=== PATIENT | female | born 1970 | race Caucasian/White ===

== ENCOUNTER 2018-04-10 08:28 | Emergency (ER) | payer OTHER ==
[2018-04-10 09:42] VITALS: RESP 18; BMI 27.4
[2018-04-10] MEDS ORDERED: Sodium Chloride 0.9% 1,000 ML IV STA (09:59)
--- NOTE | 2018-04-10 10:21 | ED PDOC ---
Arrival/HPI - General Chief Complaint: Back Pain Time Seen by Provider: 04/10/18 09:03 Historian: Patient - History of Present Illness Narrative History of Present Illness (Text): 04/10/18 10:18 48-year-old female presents today with left flank pain. Patient states she woke up at 4 AM with a sharp left-sided flank pain that radiates to the left lower abdomen. She denies dysuria or urinary frequency. Denies hematuria. Patient states pain was associated with 2 episodes of vomiting. She denies chest pain or shortness of breath. Denies fevers or chills. Patient denies dizziness or weakness. Patient denies any recent trauma or injury. Patient with a history of kidney stones in the past but never with pain as severe as this. No medications have been taken for pain at home. No other complaints Time/Duration: Other (4am this morning) Symptom Onset: Sudden Symptom Course: Unchanged Quality: Stabbing Past Medical History - Provider Review Nursing Documentation Reviewed: Yes - Travel History Have you recently traveled outside [place] w/in the past 3 mons?: No - Infectious Disease Hx of Infectious Diseases: None - Reproductive Menopause: No - Cardiac Hx Cardiac Disorders: No - Pulmonary Hx Respiratory Disorders: No - Neurological Hx Neurological Disorder: No - Endocrine/Metabolic Hx Endocrine Disorders: No Hx Hypothyroidism: Yes - Hematological/Oncological Hx Blood Disorders: No - Integumentary Hx Dermatological Disorder: No - Psychiatric Hx Substance Use: No - Anesthesia Hx Anesthesia: No Family/Social History - Physician Review Nursing Documentation Reviewed: Yes Family/Social History: Unknown Family HX Smoking Status: Unknown If Ever Smoked Hx Alcohol Use: No Hx Substance Use: No Allergies/Home Meds Allergies/Adverse Reactions: Allergies No Known Allergies Allergy (Verified 04/10/18 09:58) Review of Systems - Review of Systems Constitutional: absent: Fatigue, Fevers Respiratory: absent: SOB, Cough Cardiovascular: absent: Chest Pain, Palpitations Gastrointestinal: Abdominal Pain, Nausea, Vomiting. absent: Constipation, Diarrhea Genitourinary Female: absent: Dysuria, Frequency, Hematuria, Vaginal Bleeding, Vaginal Discharge Musculoskeletal: Back Pain. absent: Arthralgias, Neck Pain Skin: absent: Rash Neurological: absent: Headache, Dizziness Psychiatric: absent: Anxiety, Depression, Suicidal Ideation Physical Exam Vital Signs Reviewed: Yes Vital Signs Temp Pulse Resp BP Pulse Ox 05/14/18 11:25 79 18 135/71 100 04/10/18 09:18 98.9 F 83 18 137/78 100 Temperature: Afebrile Blood Pressure: Normal Pulse: Regular Respiratory Rate: Normal Appearance: Positive for: Well-Appearing, Non-Toxic, Comfortable Pain Distress: None Mental Status: Positive for: Alert and Oriented X 3 - Systems Exam Head: Present: Atraumatic Mouth: Present: Moist Mucous Membranes Respiratory/Chest: Present: Clear to Auscultation Cardiovascular: Present: Regular Rate and Rhythm Abdomen: Present: Tenderness (+ left upper and left lower abd tenderness; ), Normal Bowel Sounds. No: Distention, Peritoneal Signs, Rebound, Guarding, McBurney's Point Tender Back: Present: Normal Inspection, Other (+ left flank tenderness). No: CVA Tenderness, Midline Tenderness Upper Extremity: Present: Normal ROM Lower Extremity: Present: Normal ROM Neurological: Present: GCS=15, Speech Normal Skin: Present: Warm, Dry, Normal Color. No: Rashes Psychiatric: Present: Alert, Oriented x 3 Medical Decision Making ED Course and Treatment: 04/10/18 10:20 Patient is nontoxic well appearing with stable vitals. Patient with left flank pain radiating to the left side of the abdomen. CBC wnl CMP wnl Lipase wnl Urinalysis: + blood CAT scan:FINDINGS: LOWER THORAX: Unremarkable. LIVER: Unremarkable. No gross lesion or ductal dilatation. GALLBLADDER AND BILE DUCTS: Unremarkable. PANCREAS: Unremarkable. No gross lesion or ductal dilatation. SPLEEN: Unremarkable. ADRENALS: Unremarkable. No mass. KIDNEYS AND URETERS: There is a 2.5 mm stone in the left UVJ with mild hydroureter and hydro nephrosis. There is a 9 mm nonobstructing stone in the left kidney VASCULATURE: Unremarkable. No aortic aneurysm. BOWEL: Unremarkable. No obstruction. No gross mural thickening. APPENDIX: Unremarkable. Normal appendix. PERITONEUM: Unremarkable. No free fluid. No free air. LYMPH NODES: Unremarkable. No enlarged lymph nodes. BLADDER: Unremarkable. REPRODUCTIVE: Unremarkable. BONES: No acute fracture. OTHER FINDINGS: None. IMPRESSION: There is a 2.5 mm stone in the left UVJ with mild hydroureter and hydro nephrosis. There is a 9 mm nonobstructing stone in the left kidney Flomax given PO morphine added; Patient reassessment: The patient is feeling better after Toradol and morphine. Vital signs are stable. I discussed all results in depth with the patient and her daughter. I've advised follow-up with their primary care physician tomorrow. Advised follow-up with the urologist within the next 2 days. I've advised immediate return if symptoms worsen persist or if new concerning symptoms develop Patient verbalizes understanding of discharge instructions and neeFlomax once daily 4 daysd for immediate followup. all aspects of this case were discussed the attending of record. Impression: kidney stone, hypronephrosis, hydroureter, Abdominal pain Motrin every 6 hours as needed for pain Percocet; one tablet every 6 hours as needed for moderate to severe pain: May cause drowsiness Flomax; once daily x 4 days. Follow up with the urologist within the next 2 days. Follow up with primary care physician within the next 2 days Return immediately if symptoms worsen persist or if new symptoms develop: High fevers, increasing pain, vomiting, diarrhea or any other concerning symptoms develop Reassessment Condition: Re-examined, Improved - Lab Interpretations Lab Results: 04/10/18 11:00 04/10/18 11:00 Lab Results 04/10/18 11:00: WBC 10.6, RBC 4.02, Hgb 11.8 L, Hct 35.0 L, MCV 87.1, MCH 29.4, MCHC 33.7, RDW 13.3, Plt Count 285, MPV 9.7, Gran % 72.0 H, Lymph % (Auto) 21.1 L, Mitchell % (Auto) 6.1 H, Eos % (Auto) 0.6 L, Baso % (Auto) 0.2, Gran # 7.63 H, Lymph # (Auto) 2.2, Mitchell # (Auto) 0.7 H, Eos # (Auto) 0.1, Baso # (Auto) 0.02 04/10/18 11:00: Acetaminophen < 10.0 L 04/10/18 11:00: Sodium 143, Potassium 4.4, Chloride 104, Carbon Dioxide 25, Anion Gap 19, BUN 11, Creatinine 0.5 L, Est GFR ( Amer) > 60, Est GFR ( Non-Af Amer) > 60, Random Glucose 117 H, Calcium 8.9, Total Bilirubin 0.3, AST 27, ALT 16, Alkaline Phosphatase 66, Total Protein 8.0, Albumin 4.2, Globulin 3.8, Albumin/Globulin Ratio 1.1, Lipase 68 04/10/18 09:59: Urine Color Yellow, Urine Appearance Clear, Urine pH 6.0, Ur Specific [place] <= 1.005, Urine Protein Negative, Urine Glucose (UA) Negative, Urine Ketones Negative, Urine Blood Moderate H, Urine Nitrate Negative, Urine Bilirubin Negative, Urine Urobilinogen 0.2, Ur Leukocyte Esterase Negative, Urine RBC 10 - 15, Urine WBC 0 - 2, Ur Epithelial Cells 4 - 5, Urine Bacteria Many - RAD Interpretation Radiology Orders: 04/10/18 09:58 ABD & PELVIS W/O PO OR IV CONT [CT] Stat 04/10/18 09:59 CHEST PORTABLE [RAD] Stat - Medication Orders Current Medication Orders: Discontinued Medications Sodium Chloride (Sodium Chloride 0.9%) 1,000 mls @ 999 mls/hr IV .Q1H1M STA Stop: 04/10/18 10:59 Last Admin: 04/10/18 10:30 Dose: 999 mls/hr eMAR Start Stop Document 04/10/18 10:30 SZA (Rec: 04/10/18 10:57 LU [id number]) Intravenous Solution Start Date 04/10/18 Start Time 10:30 End Date 04/10/18 End time 11:30 Total Infusion Time 60 Ketorolac Tromethamine (Toradol) 30 mg IVP STAT STA Stop: 04/10/18 10:00 Last Admin: 04/10/18 10:30 Dose: 30 mg [facility] Pain Assessment Document 04/10/18 10:30 SZA (Rec: 04/10/18 10:56 [id number]) Pain Reassessment Is this a pain reassessment? No Sleep Is patient sleeping during reassessment? No Presence of Pain Presence of Pain Yes Pain Scale Used Pain Scale Used Numeric Description Description Intermittent Intensity of Pain at present 9 IVP Administration Document 04/10/18 10:30 SZA (Rec: 04/10/18 10:56 LU [id number]) Charges for Administration # of IVP Administrations 1 Re-Assess: WALLACE Pain Assessment Document 04/10/18 11:30 SZA (Rec: 04/10/18 13:46 LU [id number]) Pain Reassessment Is this a pain reassessment? Yes Sleep Is patient sleeping during reassessment? No Presence of Pain Presence of Pain Yes Pain Scale Used Pain Scale Used Numeric Description Description Intermittent Intensity of Pain at present 5 Morphine Sulfate (Morphine) 4 mg IVP STAT STA Stop: 04/10/18 12:40 Last Admin: 04/10/18 13:20 Dose: 4 mg MAR Pain Assessment Document 04/10/18 13:20 SZA (Rec: 04/10/18 13:42 SZA [id number]) Pain Reassessment Is this a pain reassessment? No Sleep Is patient sleeping during reassessment? Yes Pain Scale Used Pain Scale Used Numeric Description Description Intermittent Intensity of Pain at present 5 IVP Administration Document 04/10/18 13:20 SZA (Rec: 04/10/18 13:42 [facility] [id number]) Charges for Administration # of IVP Administrations 1 Ondansetron HCl (Zofran Inj) 4 mg IVP STAT STA Stop: 04/10/18 10:00 Last Admin: 04/10/18 10:30 Dose: 4 mg IVP Administration Document 04/10/18 10:30 [facility] (Rec: 04/10/18 10:55 [facility] [id number]) Charges for Administration # of IVP Administrations 1 Tamsulosin HCl (Flomax) 0.4 mg PO STAT STA Stop: 04/10/18 12:40 Last Admin: 04/10/18 13:20 Dose: 0.4 mg Disposition/Present on Arrival - Present on Arrival Any Indicators Present on Arrival: No History of DVT/PE: No History of Uncontrolled Diabetes: No Urinary Catheter: No History of Decub. Ulcer: No History Surgical Site Infection Following: None - Disposition Have Diagnosis and Disposition been Completed?: Yes Diagnosis: Kidney stone, Hydronephrosis, Hydroureter, Abdominal pain Disposition: HOME/ ROUTINE Disposition Time: 14:46 Patient Plan: Discharge Patient Problems: Current Active Problems Problem Status Onset Abdominal pain Acute Hydronephrosis Acute Hydroureter Acute Kidney stone Acute Condition: GOOD Discharge Instructions (ExitCare): Acute Abdomen (Belly Pain), Kidney Stones in Adults, Hydronephrosis in Adults, Flank Pain (DC) Print Language: ESTONIAN Prescriptions: Ibuprofen [Motrin] 600 mg PO Q6H PRN #20 tab PRN Reason: pain/fever reduction oxyCODONE/Acetaminophen [Percocet 5/325 mg Tab] 1 tab PO Q6H PRN #6 tab PRN Reason: moderate to severe pain Tamsulosin [Flomax] 0.4 mg PO DAILY #4 cap Referrals: Tracee Atkinson MD [Staff Provider] - Follow up with primary Wilfrido Benoit MD [Staff Provider] - Follow up with primary [facility] [Outside] - Follow up with primary Forms: [employer] (Somali), WORK NOTE
[2018-04-10 10:59] LABS: URINE BILIRUBIN NEGATIVE (NEGATIVE); URINE BLOOD MODERATE (NEGATIVE); URINE GLUCOSE (UA) NEGATIVE (NEGATIVE); URINE LEUKOCYTE ESTERASE NEGATIVE Leu/uL (NEGATIVE); URINE PROTEIN NEGATIVE mg/dL (<30 mg/dL); URINE UROBILINOGEN 0.2 E.U./dL (<1 E.U./dL)
[2018-04-10 11:00] LABS: URINE APPEARANCE CLEAR (CLEAR); URINE COLOR YELLOW (YELLOW)
[2018-04-10 11:02] LABS: BASO # 0.02 K/mm3 (0.0-2.0); BASO % 0.2 % (0.0-3.0); EOS # 0.1 (0.0-0.7); EOS % 0.6 % (1.5-5.0); GRAN # 7.63 (1.4-6.5); HEMOGLOBIN 11.8 g/dL (12.0-16.0); LYMPH # 2.2 (1.2-3.4); LYMPH % 21.1 % (22.0-35.0); MEAN CELL VOLUME 87.1 fl (80.0-105.0); MEAN CORPUSCULAR HEMOGLOBIN 29.4 pg (25.0-35.0); MEAN CORPUSCULAR HGB CONC 33.7 g/dl (31.0-37.0); MEAN PLATELET VOLUME 9.7 fl (7.0-11.0); MONO # 0.7 (0.1-0.6); MONO % 6.1 % (1.0-6.0); RBC 4.02 10^6/uL (3.5-6.1); RED CELL DISTRIBUTION WIDTH 13.3 % (11.5-14.5); WHITE BLOOD COUNT 10.6 10^3/ul (4.5-11.0)
[2018-04-10 11:08] LABS: URINE BACTERIA MANY (NEG); URINE WBC 0 - 2 /hpf (0-6)
[2018-04-10 11:44] LABS: ALB/GLOB RATIO 1.1 (1.1-1.8); ALBUMIN 4.2 g/dL (3.0-4.8); ALT/SGPT 16 U/L (7-56); AST/SGOT 27 U/L (14-36); BLOOD UREA NITROGEN 11 mg/dL (7-21); CALCIUM 8.9 mg/dL (8.4-10.5); GFR AFRICAN-AMERICAN > 60; GFR NON-AFRICAN AMERICAN > 60; LIPASE 68 U/L (23-300)
--- NOTE | 2018-04-10 12:15 | RAD ---
HISTORY: left flank/abd pain COMPARISON: No prior. FINDINGS: LUNGS: No active pulmonary disease. PLEURA: No significant pleural effusion identified, no pneumothorax apparent. CARDIOVASCULAR: Normal. OSSEOUS STRUCTURES: No significant abnormalities. VISUALIZED UPPER ABDOMEN: Normal. OTHER FINDINGS: None. IMPRESSION: No active disease.
--- NOTE | 2018-04-10 12:23 | CT ---
PROCEDURE: CT Abdomen and Pelvis without intravenous contrast HISTORY: left flank/left abd pain COMPARISON: None. TECHNIQUE: Without contrast. Contrast dose: Radiation dose: Total exam DLP = 734 mGy-cm. This CT exam was performed using one or more of the following dose reduction techniques: Automated exposure control, adjustment of the mA and/or kV according to patient size, and/or use of iterative reconstruction technique. FINDINGS: LOWER THORAX: Unremarkable. LIVER: Unremarkable. No gross lesion or ductal dilatation. GALLBLADDER AND BILE DUCTS: Unremarkable. PANCREAS: Unremarkable. No gross lesion or ductal dilatation. SPLEEN: Unremarkable. ADRENALS: Unremarkable. No mass. KIDNEYS AND URETERS: There is a 2.5 mm stone in the left UVJ with mild hydroureter and hydro nephrosis. There is a 9 mm nonobstructing stone in the left kidney VASCULATURE: Unremarkable. No aortic aneurysm. BOWEL: Unremarkable. No obstruction. No gross mural thickening. APPENDIX: Unremarkable. Normal appendix. PERITONEUM: Unremarkable. No free fluid. No free air. LYMPH NODES: Unremarkable. No enlarged lymph nodes. BLADDER: Unremarkable. REPRODUCTIVE: Unremarkable. BONES: No acute fracture. OTHER FINDINGS: None. IMPRESSION: There is a 2.5 mm stone in the left UVJ with mild hydroureter and hydro nephrosis. There is a 9 mm nonobstructing stone in the left kidney
[2018-04-10] MEDS ORDERED: Morphine 4 mg/ml ISec IVP STA (12:39)
[2018-04-10 15:52] VITALS: O2SAT 99
[2018-04-10 15:54] VITALS: BP 121/70; PULSE 78; TEMP 98
== END 2018-04-10 16:00 | disposition home or self-care (01) ==
LOC: ED 08:28
DX: N13.30 Unspecified hydronephrosis (principal); N13.4 Hydroureter; N20.0 Calculus of kidney; R10.9 Unspecified abdominal pain
CPT/HCPCS: 71045; 74176; 80053; 80329; 81001; 83690; 85025; 87086; 96361; 96374; 96375; 99283; J1885; J2270; J2405; J7040